=== PATIENT | female | born 1980 | race Caucasian/White ===

== ENCOUNTER 2018-12-10 23:46 | Emergency (ER) | payer SELFPAY | END 2018-12-11 02:24 | disposition home or self-care (01) | LOC: FER 23:46 | PROC: 3E0234Z Introduction of Serum, Toxoid and Vaccine into Muscle, Percutaneous Approach (ICD-10-PCS; principal; 2018-12-10) | DX: S62.91XA Unspecified fracture of right hand, initial encounter for closed fracture (principal); T14.8XXA Other injury of unspecified body region, initial encounter; X58.XXXA Exposure to other specified factors, initial encounter; Y93.89 Activity, other specified; Y92.89 Other specified places as the place of occurrence of the external cause; Y99.8 Other external cause status; F17.210 Nicotine dependence, cigarettes, uncomplicated ==